=== PATIENT | female | born 1960 | race Caucasian/White ===

== ENCOUNTER 2017-09-27 12:51 | Emergency (ER) | payer OTHER ==
[~2017-09-27] VITALS: Ht 165.1 cm; Wt 56.4 kg
[2017-09-27 12:55] VITALS: BP 163/81; PULSE 85; RESP 16; TEMP 97.8; O2SAT 98
[2017-09-27] MEDS ORDERED: LORazepam 1 MG TAB PO PRN (15:30)
--- NOTE | 2017-09-27 15:54 | PD ---
HPI Chief Complaint: Anxiety Time Seen by Provider: 15:07 Travel History International Travel<30 days: No Contact w/Intl Traveler<30days: No Traveled to known affect area: No History of Present Illness HPI 49-year-old woman with a history of alcoholism in the past presents to the emergency department complaining of anxiety symptoms. She reports she been increasingly anxious and depressed over the past couple weeks. Her daughter and her son accompanying her to the emergency department. Daughter reports that she has been more paranoid, stating that she will wake up in the morning and states that her children need to leave the house because it is unsafe, and is worried that she is losing her job which the family states is not true. She takes Xanax as needed for anxiety. Family reports that she told 1 of her friends that she wanted to overdose on Xanax to kill herself. She was seen at [facility] couple days ago and started on SSRIs. She does not see a psychiatrist as an outpatient. She is prescribed Xanax by her primary physician. Denies any history of other psychiatric disease. Never been hospitalized for psychiatric disease. No history of delusional or psychotic behaviors. History Past Medical History Narrative Medical History of alcoholism Neuropathy Anxiety Social History Tobacco Use: No Allergies-Medications (Allergen,Severity, Reaction): Coded Allergies: No Known Allergies (Unverified , 09/27/17) Review of Systems Except as stated in HPI: all other systems reviewed are Neg Physical Exam Narrative GENERAL: 57-year-old woman, anxious and tearful. SKIN: Focused skin assessment warm/dry. HEAD: Atraumatic. Normocephalic. EYES: Pupils equal and round. No scleral icterus. No injection or drainage. ENT: No nasal bleeding or discharge. Mucous membranes pink and moist. NECK: Trachea midline. No JVD. CARDIOVASCULAR: Regular rate and rhythm. No murmur appreciated. RESPIRATORY: No accessory muscle use. Clear to auscultation. Breath sounds equal bilaterally. GASTROINTESTINAL: Abdomen soft, non-tender, nondistended. Hepatic and splenic margins not palpable. MUSCULOSKELETAL: No obvious deformities. No edema. NEUROLOGICAL: Awake and alert. No obvious cranial nerve deficits. Motor grossly within normal limits. Normal speech. PSYCHIATRIC: Poor eye contact. Flat affect. Insight and judgment appear normal. Slow to answer questions. Data Data Last Documented VS Vital Signs Date Time Temp Pulse Resp B/P (MAP) Pulse Ox O2 Delivery O2 Flow Rate FiO2 09/27/17 12:55 97.8 85 16 163/81 (108) 98 Orders Orders Complete Blood Count With Diff (09/27/17 15:17) Comprehensive Metabolic Panel (09/27/17 15:17) Thyroid Stimulating Hormone (09/27/17 15:17) Psych Screen (09/27/17 15:17) Drug Screen, Random Urine (09/27/17 15:17) Lorazepam (Ativan) (09/27/17 15:30) Diet Regular Basic (09/27/17 Dinner) MDM Medical Decision Making Medical Screen Exam Complete: Yes Emergency Medical Condition: Yes Differential Diagnosis Anxiety or depression, adjustment reaction, psychosis, alcohol use, other Narrative Course Medical decision making 49-year-old with increased anxiety symptoms, reportedly delusional or paranoid behaviors as well. No wesley hallucinations at evident now. No evidence of psychotic behavior now. Family feels like she needs to be hospitalized. She will be voluntary evaluation for psychiatry. Patient is medically clear for psychiatric evaluation. Grayson Mohr MD Sep 27, 2017 15:54
[2017-09-27] MEDS ORDERED: CELE10TA PO (16:12)
[2017-09-27] MEDS ORDERED: XANA1TAB2 PO (16:12)
[2017-09-27] MEDS ORDERED: GABA100C4 PO (16:12)
[2017-09-27 16:19] LABS: AUTOMATED NEUTROPHIL # 8.6 TH/MM3 (1.8-7.7); BASOPHIL % 0.4 % (0.0-2.0); EOSINOPHIL % 0.2 % (0.0-4.0); HEMATOCRIT 45.9 % (35.0-46.0); HEMOGLOBIN 15.5 GM/DL (11.6-15.3); LYMPH % 13.5 % (9.0-44.0); LYMPHOCYTE # 1.4 TH/MM3 (1.0-4.8); MEAN CELL VOLUME 87.7 FL (80.0-100.0); MEAN CORPUSCULAR HEMOGLOBIN 29.6 PG (27.0-34.0); MEAN CORPUSCULAR HGB CONC 33.7 % (32.0-36.0); MONO % 5.3 % (0.0-8.0); MONOCYTE # 0.6 TH/MM3 (0-0.9); NEUT % 80.6 % (16.0-70.0); PLATELET COUNT 232 TH/MM3 (150-450); RED BLOOD COUNT 5.23 MIL/MM3 (4.00-5.30); RED CELL DISTRIBUTION WIDTH 14.6 % (11.6-17.2); WHITE BLOOD COUNT 10.7 TH/MM3 (4.0-11.0)
[2017-09-27 16:28] LABS: ALBUMIN 3.5 GM/DL (3.4-5.0); AST (GOT) 16 U/L (15-37); BICARBONATE 30.2 MEQ/L (21.0-32.0); BLOOD UREA NITROGEN 7 MG/DL (7-18); CHLORIDE 103 MEQ/L (98-107); CREATININE 0.79 MG/DL (0.50-1.00); GLOMERULAR FILTRATION RATE 75 ML/MIN (>89); GLUCOSE,RANDOM 165 MG/DL (74-106); SODIUM (NA) 138 MEQ/L (136-145)
[2017-09-27 16:30] LABS: ALT (GPT) 24 U/L (10-53)
[2017-09-27 16:39] LABS: ALKALINE PHOSPHATASE 99 U/L (45-117); TOTAL BILIRUBIN ADULT 0.8 MG/DL (0.2-1.0); TOTAL PROTEIN 6.9 GM/DL (6.4-8.2)
[2017-09-27 18:42] VITALS: BP 142/88; PULSE 66; RESP 16; O2SAT 99
[2017-09-28 07:51] VITALS: BP 141/69; PULSE 77; RESP 17; TEMP 97.6; O2SAT 98
[2017-09-28] MEDS ORDERED: GABAPENTIN 400 MG CAP PO ONE (08:00)
[2017-09-28 11:04] VITALS: BP 129/89; PULSE 77; RESP 18; O2SAT 99
--- NOTE | 2017-09-28 12:13 | PD ---
History of Present Illness Chief Complaint: Anxiety Time Seen by Provider: 11:40 Travel History International Travel<30 Days: No Contact w/Intl Traveler<30days: No Known affected area: No Legal Status Legal Status: Voluntary History of Present Illness: History of Present Illness HPI 49-year-old, female with reported history of alcohol dependence, anxiety who presents presents to the emergency department on a voluntary basis requesting psychiatric evaluation with chief complaint of increased anxiety symptoms. Symptoms have increased over the past couple weeks. Daughter reported to ED provider that" the patient has been more paranoid stating that she will wake up in the morning and states that her children need to leave the house because it is unsafe and is worried that she is losing her job. Family also reported that she told 1 of her friends that she wanted to overdose on Xanax to kill herself. She was seen at [facility] couple days ago and started on SSRIs". Electronic medical record is reviewed. No previous contact with [facility] psychiatry. Current toxicology is positive for benzos which are prescribed. Patient is seen in Main ED. She is awake, alert, oriented. She is found watching TV and eating a snack. Daughter and son are at bedside. The patient is dressed casually and with adequate hygiene and grooming. Her speech is clear and logical. She appears anxious. She reports that upon awakening she feels more confused and like her head is "scrambled". Decreased concentration and attention are noted. She denies any hallucinations and does not appear internally preoccupied. The patient denies suicidal or homicidal ideation, intent or plan. She has recently requested that her primary care physician decreased her dosage of gabapentin. She was seen at [facility] and she was prescribed Prozac 2 weeks ago. Patient states she took it for a couple of days but has since stopped taking it. She denies that she is overusing her Xanax and actually states that she has begun to cut down on her dosage on her own. States that it has order to be taken 3 times a day and she only takes 2 at bedtime. Patient denies that she has been drinking and states that she has been sober for 3-1/2 years. Telephone call to [facility] at [phone]. They have detox beds available if the patient wants to get off the benzos. I informed the patient and the family that they need to take her there. PFSH Past Medical History Anxiety: Yes ?: Not Psychiatric History Psychiatric History Hx Psychiatric Treatment: HX: ANXIETY DENIES ANY PAST INPATIENT ADMISSIONS AND NO CURRENT OUTPATIENT SERVICES. No previous suicide attempts. History of Inpatient Treatment: No Guns or firearms in home: No Social History female. Moved from [place] in February. 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 She lives with her daughter. A younger son has left for college recently. Hx Alcohol Use: No (quit) Hx Tobacco Use: No Hx Substance Use: Yes Substance Use Type: Alcohol (Reports she began drinking at age [age] years old.) Other Substances Used: 3.5 YRS SOBER. Had been attending AA until 1 month ago Hx of Substance Use Treatment: Yes Family Psychiatric History Negative Allergies-Medications (Allergen,Severity, Reaction): Coded Allergies: No Known Allergies (Unverified , 09/27/17) Reported Meds & Prescriptions Reported Meds & Active Scripts Active Reported Celexa (Citalopram Hydrobromide) 10 Mg Tab 10 Mg PO DAILY Gabapentin 100 Mg Cap 400 Mg PO TID Xanax (Alprazolam) 1 Mg Tab 1 Mg PO Q6H PRN Review of Systems Psychiatric: COMPLAINS OF: Anxiety Except as stated in HPI: all other systems reviewed are Neg Mental Status Examination Appearance: Appropriate Consciousness: Alert Orientation: x4 Motor Activity: Normal gait Speech: Unremarkable Language: Adequate Fund of Knowledge: Adequate Attention and Concentration: Easily Distracted Memory: Unremarkable Mood: Anxious Affect: Blunt Thought Process & Associations: Intact Thought Content: Appropriate Hallucination Type: None Delusion Type: None Suicidal Ideation: No Suicidal Plan: No Suicidal Intention: No Homicidal Ideation: No Homicidal Plan: No Homicidal Intention: No Insight: Fair Judgment: Adequate [facility] Medical Decision Making Medical Record Reviewed: Yes Assessment/Plan 57-year-old female with history of alcohol dependence, anxiety, who presents to the emergency department on a voluntary basis requesting an evaluation of increase in her symptoms of anxiety. Family at bedside reported that during the past several days she has been verbalizing statements such as that the family is unsafe and that they need to leave the home. They describe it as being paranoid. The patient states that she has been feeling somewhat scrambled in her thought process. She has been attempting to decrease the gabapentin as well as the Xanax on her own. She was also started on Prozac approximately 2 weeks ago which she has stopped. Patient denies that she is overusing her medication or drinking. At this point the diagnosis is somewhat unclear since there is no previous history of any psychiatric illness. She is cognitively intact. I recommended several options including seeking detox services as patient wanted to get off the Xanax. I have also recommended outpatient psychiatric care and have provided the family with a list of resources in the community. The patient does not want to be admitted and does not meet criteria to be held against her will. I have advised her daughter that if there are any changes in her presentation she can certainly bring her back to the ED. The daughter inquires regarding involuntary examination and the procedure has been explained to her. Does not meet [facility] at criteria. Psychiatrically clear to be discharged from the ED. Referred to [facility] for dual treatment. Orders Orders Complete Blood Count With Diff (09/27/17 15:17) Comprehensive Metabolic Panel (09/27/17 15:17) Thyroid Stimulating Hormone (09/27/17 15:17) Psych Screen (09/27/17 15:17) Drug Screen, Random Urine (09/27/17 15:17) Lorazepam (Ativan) (09/27/17 15:30) Diet Regular Basic (09/27/17 Dinner) Diet Regular Basic (09/28/17 Breakfast) Gabapentin (Neurontin) (09/28/17 08:00) Results Vital Signs Date Time Temp Pulse Resp B/P (MAP) Pulse Ox O2 Delivery O2 Flow Rate FiO2 09/28/17 11:04 77 18 129/89 (102) 99 Room Air 09/28/17 07:51 97.6 77 17 141/69 (93) 98 09/27/17 18:42 66 16 142/88 (106) 99 09/27/17 12:55 97.8 85 16 163/81 (108) 98 Laboratory Tests Test 09/27/17 15:35 09/27/17 15:45 White Blood Count 10.7 Red Blood Count 5.23 Hemoglobin 15.5 Hematocrit 45.9 Mean Corpuscular Volume 87.7 Mean Corpuscular Hemoglobin 29.6 Mean Corpuscular Hemoglobin Concent 33.7 Red Cell Distribution Width 14.6 Platelet Count 232 Mean Platelet Volume 8.0 Neutrophils (%) (Auto) 80.6 Lymphocytes (%) (Auto) 13.5 Monocytes (%) (Auto) 5.3 Eosinophils (%) (Auto) 0.2 Basophils (%) (Auto) 0.4 Neutrophils # (Auto) 8.6 Lymphocytes # (Auto) 1.4 Monocytes # (Auto) 0.6 Eosinophils # (Auto) 0.0 Basophils # (Auto) 0.0 CBC Comment DIFF FINAL Differential Comment Blood Urea Nitrogen 7 Creatinine 0.79 Random Glucose 165 Total Protein 6.9 Albumin 3.5 Calcium Level 9.0 Alkaline Phosphatase 99 Aspartate Amino Transf (AST/SGOT) 16 Alanine Aminotransferase (ALT/SGPT) 24 Total Bilirubin 0.8 Sodium Level 138 Potassium Level 4.5 Chloride Level 103 Carbon Dioxide Level 30.2 Anion Gap 5 Estimat Glomerular Filtration Rate 75 Thyroid Stimulating Hormone 3rd Gen 1.660 Urine Opiates Screen NEG Urine Barbiturates Screen NEG Urine Amphetamines Screen NEG Urine Benzodiazepines Screen POS Urine Cocaine Screen NEG Urine Cannabinoids Screen NEG Diagnosis Primary Impression: Alcohol dependence Additional Impression: Anxiety Psychiatrically Cleared: Yes Med/ Other Pt Specific Info: No Change to Meds Disposition: 01 DISCHARGE HOME Condition: Stable Problem Qualifiers Primary Impression: Alcohol dependence Qualified Codes: F10.21 - Alcohol dependence, in remission Sulma Irwin Sep 28, 2017 12:13
== END 2017-09-28 12:45 | disposition home or self-care (01) ==
LOC: NEPD 12:51
DX: F10.20 Alcohol dependence, uncomplicated (principal); F41.9 Anxiety disorder, unspecified; F19.10 Other psychoactive substance abuse, uncomplicated; G62.9 Polyneuropathy, unspecified; Z79.899 Other long term (current) drug therapy
CPT/HCPCS: 80053; 80307; 84443; 85025; 99283

== ENCOUNTER 2017-11-09 17:51 | Inpatient (IN) | END 2017-11-13 13:50 | disposition home or self-care (01) | DRG 885 | DX: F23 Brief psychotic disorder (principal); E55.9 Vitamin D deficiency, unspecified; M62.838 Other muscle spasm; F17.210 Nicotine dependence, cigarettes, uncomplicated ==